=== PATIENT | male | born 1995 | race Caucasian/White ===

== ENCOUNTER 2022-01-03 11:12 | Emergency (ER) | payer MEDICAID ==
[~2022-01-03] VITALS: Ht 167.6 cm; Wt 60.9 kg
[2022-01-03 13:23] VITALS: BP 122/71
== END 2022-01-03 14:03 | disposition left against medical advice (07) ==
LOC: EMS 11:12
DX: R45.1 Restlessness and agitation (principal); Z53.21 Procedure and treatment not carried out due to patient leaving prior to being seen by health care provider